=== PATIENT | male | born 1940 | race Caucasian/White ===

== ENCOUNTER 2018-06-15 09:21 | Observation (INO) | payer MEDICARE, BC ==
[~2018-06-15] VITALS: Ht 172.7 cm; Wt 32.3 kg
[2018-06-15 09:33] VITALS: Ht 172.7 cm; Wt 32.3 kg
[2018-06-15] MEDS ORDERED: LOSA1TAB25 ORAL (11:33)
[2018-06-15] MEDS ORDERED: BIMA2.5D OP (11:33)
[2018-06-15] MEDS ORDERED: CLON-379 PO (11:33)
[2018-06-15] MEDS ORDERED: AMLO-147 PO (11:33)
[2018-06-15] MEDS ORDERED: ACETAMINOPHEN 325 MG TAB PO PRN (12:00)
[2018-06-15] MEDS ORDERED: ONDANSETRON 4 MG INJ IV PRN (12:00)
--- NOTE | 2018-06-15 13:05 | ERD ---
ER Documentation Chief Complaint Chief Complaint rectal bleeding x 4 days , sent by pmd for eval HPI Patient is a 78-year-old male with hypertension who presents for GI bleed. The patient was sent by Dr. Macedo for admission. The symptoms started 4 days ago. The patient had bright red blood in his stool while in the bathroom. He said that his last colonoscopy was 2010. He does not take blood thinning medications currently. Upon review of old medical records this is the patient's first visit to the emergency department. The patient's primary doctor is Dr. Macedo. ROS All systems reviewed and are negative except as per history of present illness. Medications Home Meds Reported Medications Clonidine Hcl* (Clonidine Hcl*) 0.1 Mg Tab, 0.1 MG PO Q8 PRN for HTN, TAB 06/15/18 Losartan-Hydrochlorothiazide (Losartan-HCTZ) 100-25 Mg Tab, 1 TAB ORAL DAILY 06/15/18 Amlodipine Besylate* (Amlodipine Besylate*) 10 Mg Tablet, 10 MG PO DAILY, #30 TAB 06/15/18 Bimatoprost* (Lumigan*) 0.01%-2.5 Ml Opht Drops, 1 DROP OP QHS INTO BOTH EYES 06/15/18 Allergies Allergies: Coded Allergies: No Known Allergy (Unverified , 06/15/18) PMhx/Soc History of Surgery: Yes (ENDOSCOPY) Anesthesia Reaction: No Hx Neurological Disorder: No Hx Respiratory Disorders: No Hx Cardiac Disorders: Yes (HTN) Hx Psychiatric Problems: No Hx Miscellaneous Medical Probl: Yes (HEMORRHOIDS) Hx Alcohol Use: No Hx Substance Use: No Hx Tobacco Use: Yes Smoking Status: Former smoker FmHx Family History: diabetes Physical Exam Vitals Vital Signs Date Temp Pulse Resp B/P (MAP) Pulse Ox O2 O2 Flow FiO2 Time Delivery Rate 06/15/18 61 12 133/71 95 Room Air 11:00 (91) 06/15/18 67 14 182/78 98 Room Air 09:47 (112) 06/15/18 98.1 88 18 185/93 98 09:33 (123) Physical Exam Const: No acute distress Head: Atraumatic Eyes: Normal Conjunctiva ENT: Normal External Ears, Nose and Mouth. Neck: Full range of motion. No meningismus. Resp: Clear to auscultation bilaterally Cardio: Regular rate and rhythm, no murmurs Abd: Soft, non tender, non distended. Normal bowel sounds Skin: No petechiae or rashes Back: No midline or flank tenderness Ext: No cyanosis, or edema Neur: Awake and alert Psych: Normal Mood and Affect Result Diagram: 06/15/1858 06/15/1858 Results 24 hrs Laboratory Tests Test 06/15/18 09:58 White Blood Count 8.0 10^3/ul Red Blood Count 4.67 10^6/ul Hemoglobin 13.2 g/dl Hematocrit 40.4 % Mean Corpuscular Volume 86.5 fl Mean Corpuscular Hemoglobin 28.3 pg Mean Corpuscular Hemoglobin Concent 32.7 g/dl Red Cell Distribution Width 13.3 % Platelet Count 185 10^3/UL Mean Platelet Volume 11.1 fl Immature Granulocytes % 0.500 % Neutrophils % 77.7 % Lymphocytes % 13.1 % Monocytes % 6.9 % Eosinophils % 1.4 % Basophils % 0.4 % Nucleated Red Blood Cells % 0.0 /100WBC Immature Granulocytes # 0.040 10^3/ul Neutrophils # 6.2 10^3/ul Lymphocytes # 1.0 10^3/ul Monocytes # 0.6 10^3/ul Eosinophils # 0.1 10^3/ul Basophils # 0.0 10^3/ul Nucleated Red Blood Cells # 0.0 10^3/ul Prothrombin Time 13.2 Sec Prothrombin Time Ratio 1.0 INR International Normalized Ratio 0.99 Activated Partial Thromboplast Time 31.1 Sec Sodium Level 144 mmol/L Potassium Level 4.1 mmol/L Chloride Level 106 mmol/L Carbon Dioxide Level 27 mmol/L Anion Gap 11 Blood Urea Nitrogen 13 mg/dl Creatinine 0.99 mg/dl Est Glomerular Filtrat Rate mL/min mL/min Glucose Level 103 mg/dl Calcium Level 9.6 mg/dl Total Bilirubin 0.6 mg/dl Direct Bilirubin 0.00 mg/dl Indirect Bilirubin 0.6 mg/dl Aspartate Amino Transf (AST/SGOT) 22 IU/L Alanine Aminotransferase (ALT/SGPT) 13 IU/L Alkaline Phosphatase 71 IU/L Troponin I < 0.012 ng/ml Total Protein 7.9 g/dl Albumin 4.4 g/dl Globulin 3.50 g/dl Albumin/Globulin Ratio 1.25 Current Medications Medications Dose Sig/Benigno Start Time Status Last (Trade) Ordered Route PRN Stop Time Admin Dose Reason Admin Ondansetron 4 mg BRIDGE ORDER 06/15/18 HCl (Zofran PRN IV 12:00 06/16/18 Inj) NAUSEA/VOMITI 11:59 NG 650 mg ER BRIDGE 06/15/18 Acetaminophen PRN PO 12:00 06/16/18 (Tylenol .MILD PAIN 11:59 Tab) 1-3 OR TEMP Procedures/MDM EKG read by me: Rate/Rhythm: Regular rate and rhythm at a normal rate Intervals: Normal Impression: No evidence of ischemia or arrhythmia Patient is an 78-year-old male who was sent to the emergency department for GI bleed by his primary doctor Dr. Macedo. The patient will require admission for observation and possible GI consultation for colonoscopy. The patient has a high risk of bleeding given his age and I am concerned about significant GI bleed. Initial hemoglobin is 13 and he does not require transfusion at this time however if his hemoglobin drops further he may require transfusion. Departure Diagnosis: Primary Impression: GI bleed GI bleed type/associated pathology: unspecified gastrointestinal hemorrhage type Qualified Codes: K92.2 - Gastrointestinal hemorrhage, unspecified Additional Impression: Anemia Anemia type: unspecified type Qualified Codes: D64.9 - Anemia, unspecified Condition: KENDRA Chakraborty MD Jun 15, 2018 13:05
[2018-06-15 13:45] VITALS: BP 159/76; PULSE 69; RESP 16
--- NOTE | 2018-06-15 16:01 | HP ---
Date/Time of Note Date/Time of Note DATE: 06/15/18 TIME: 16:00 Assessment/Plan VTE Prophylaxis SCD applied (from Nsg): No SCD contraindicated: low risk/ambulating Pharmacological prophylaxis: other (Able to move all negative.) Lines/Catheters IV Catheter Type (from Nrsg): [place] [employer] line still needed: No Urinary Cath still in place: No Reason Cath still needed: urinary retention Assessment/Plan Assessment/Plan 1. Rectal stricture; progressively getting worse; after more than 20 years performed surgery for hemorrhoids. Unable to empty the bowel now more with more frequent reports reports of having rectal bleeding. With pain and discomfort. 2. Rectal bleeding 3. Hemorrhoids 4. Hypertension out of control 5. Dyslipidemia 6. Hypercalcemia 7. Atherosclerotic cardiovascular disease. 8. Severe hearing impairment 9. Osteoarthritis 10. Lumbosacral radiculopathy 11. Posttraumatic stress disorder 12. Anxiety disorder 13. Gastroesophageal reflux disorder. 14. BPH with possible prostatic mass 15. Snoring. Result Diagram: 06/15/1858 06/15/18 0958 Results 24hrs Laboratory Tests Test 06/15/18 09:58 White Blood Count 8.0 Red Blood Count 4.67 L Hemoglobin 13.2 L Hematocrit 40.4 L Mean Corpuscular Volume 86.5 Mean Corpuscular Hemoglobin 28.3 L Mean Corpuscular Hemoglobin Concent 32.7 Red Cell Distribution Width 13.3 Platelet Count 185 Mean Platelet Volume 11.1 H Immature Granulocytes % 0.500 H Neutrophils % 77.7 H Lymphocytes % 13.1 L Monocytes % 6.9 Eosinophils % 1.4 Basophils % 0.4 Nucleated Red Blood Cells % 0.0 Immature Granulocytes # 0.040 H Neutrophils # 6.2 Lymphocytes # 1.0 Monocytes # 0.6 Eosinophils # 0.1 Basophils # 0.0 Nucleated Red Blood Cells # 0.0 Prothrombin Time 13.2 Prothrombin Time Ratio 1.0 INR International Normalized Ratio 0.99 Activated Partial Thromboplast Time 31.1 Sodium Level 144 Potassium Level 4.1 Chloride Level 106 Carbon Dioxide Level 27 Anion Gap 11 Blood Urea Nitrogen 13 Creatinine 0.99 Est Glomerular Filtrat Rate mL/min Glucose Level 103 Calcium Level 9.6 Total Bilirubin 0.6 Direct Bilirubin 0.00 Indirect Bilirubin 0.6 Aspartate Amino Transf (AST/SGOT) 22 Alanine Aminotransferase (ALT/SGPT) 13 Alkaline Phosphatase 71 Troponin I < 0.012 Total Protein 7.9 Albumin 4.4 Globulin 3.50 H Albumin/Globulin Ratio 1.25 CA 125 Antigen 6.8 Thyroid Stimulating Hormone (TSH) 1.410 HPI/ROS Admit Date/Time Admit Date/Time Jun 15, 2018 at 11:59 Hx of Present Illness Rectal bleeding on and off. Getting more difficult to empty the bowel. It is also painful. I lost weight. He is struggling to evacuate the fecal masses to the rectum the patient underwent. Hemorrhoidal surgery more than 20 years ago after which this problem had started but now it is getting worse. PMH/Family/Social Past Medical History Medical History: angina, congestive heart failure, coronary artery disease, diabetes, diverticulitis, GERD, GI bleed, high cholesterol, hypertension, irritable bowel syndrome, urinary tract infection Medications Current Medications Ondansetron HCl (Zofran Inj) 4 mg BRIDGE ORDER PRN IV NAUSEA/VOMITING; Start 06/15/18 at 12:00; Stop 06/16/18 at 11:59 Acetaminophen (Tylenol Tab) 650 mg ER BRIDGE PRN PO .MILD PAIN 1-3 OR TEMP; Start 06/15/18 at 12:00; Stop 06/16/18 at 11:59 Coded Allergies: No Known Allergy (Unverified , 06/15/18) Social History Alcohol Use: rarely Smoking Status: Former smoker Drug Use: none Exam/Review of Systems Vital Signs Vitals Vital Signs Date Temp Pulse Resp B/P (MAP) Pulse Ox O2 O2 Flow FiO2 Time Delivery Rate 06/15/18 97.8 69 16 159/76 98 Room Air 13:45 (103) Exam Constitutional: alert, oriented, well developed, non-verbal, distress, frail Psych: anxiety, depression; No no complaints, No nl mood/affect, No confusion, No suicidal, No other Head: normocephalic, atraumatic; No lacerations, No hematomas, No other Eyes: EOMI, nl lids, PERRL; No nl conjunctiva, No nl sclera, No icteric, No fundi, disc, No other ENMT: nl lips & teeth; No nl external ears & nose, No nl nasal mucosa & septum, No mucosa pink and moist, No intubated, No tympanic membranes, No other Neck: jvd, bruits, nuchal rigidity; No supple, No non-tender, No masses, No thyromegaly, No other Respiratory: clear to auscultation, normal air movement, crackles/rales, diminished breath sounds; No congested cough, No intercostal retraction, No labored breathing, No respirations, No tactile fremitus, No wheezing, No other Cardiovascular: regular rate and rhythm, nl pulses, bruits, jugular venous distention (JVD), systolic murmur Gastrointestinal: soft, nl liver, spleen, non-tender, bowel sounds, distended, other (Status post sequelae of hemorrhoidectomy surgery note oh on 06 with scar tissue trace of hemorrhoids noted to have. Patient the patient refused to perform a manual digital exam.) ISABELLA LEDESMA MD Jun 15, 2018 16:00
[2018-06-15 20:00] VITALS: BP 157/71; PULSE 72; RESP 18
[2018-06-15] MEDS ORDERED: PEG/ELECTROLYTES 4L BTL PO ONE (20:00)
--- NOTE | 2018-06-15 20:24 | CONS ---
DATE OF ADMISSION: 06/15/2018 DATE OF CONSULTATION: TYPE OF CONSULTATION: Gastroenterology. Dear Dr. Macedo: Thank you for asking me to see Mr. Desouza in GI consultation. HISTORY OF PRESENT ILLNESS: The patient, as you know, is an 78-year-old [place] gentleman who at th is time is admitted to the hospital because of the history of rectal bleeding and apparently has been passing blood from the rectum for the past 4 days. He also says he has got extreme difficulty in em ptying the rectum and is unable to completely evacuate the rectum. He has history of hemorrhoidal alexis rgery 20 years ago. He has no nausea, no vomiting, no hematemesis, but he does have a history of abd ominal distention every time after he eats his food. No abdominal pain. He developed significant ab dominal distention. PAST MEDICAL HISTORY: Includes prostate surgery followed by chemotherapy and radiation. REVIEW OF SYSTEM: Positive for hypertension, dyslipidemia, hypercalcemia, deafness, osteoarthritis. MEDICATIONS PRIOR TO THE ADMISSION: Include: 1. Amlodipine. 2. Clonidine. 3. Losartan. 4. Hydrochlorothiazide. 5. Lumigan eyedrops. SOCIAL HISTORY: He quit drinking many years ago. PHYSICAL EXAMINATION: GENERAL: The patient is an 78-year-old [place] gentleman who at this time is very alert, well built . VITAL SIGNS: He is afebrile. CARDIOVASCULAR: Normal heart sounds. RESPIRATORY: Normal breath sounds. ABDOMEN: Showed unremarkable findings. LABORATORY WORKUP: Hemoglobin is 13.2, WBC count 8000. Potassium 4.1. Bilirubin 0.6, AST 22, ALT 1 3, alkaline phosphatase 71. CA-125 antigen is 6.8. TSH is 1.41. DIAGNOSTIC DATA: Chest x-ray shows prominent bilateral lower lobe interstitial lung markings. CLINICAL IMPRESSION: 1. The patient presenting with history of severe abdominal bloating and abdominal discomfort for man y years and certainly, one should rule out the possibility of peptic ulcer disease, gastroesophageal reflux disease, upper gastrointestinal tract neoplasm. 2. He has got history of rectal bleeding and has got difficulty in evacuation of the stools. 3. He is status post hemorrhoidectomy. Rule out rectal stricture. Rule out colorectal neoplasm, ar teriovenous malformation, diverticulosis of the colon. 4. Other medical problems essentially as mentioned above. PLAN: At this time, I recommend upper endoscopy as well as lower endoscopy. Once again, Dr. Macedo, thank you for this consultation. Dictated By: JACKI WELSH/NTS Conf#: [id number] DID#: [id number] CC: ISABELLA MACEDO MD;*EndCC*
[2018-06-15] MEDS: HYDROCHLOROTHIAZIDE 25 MG TAB PO SCH (20:43)
[2018-06-15] MEDS: LOSARTAN 50 MG TAB PO SCH (20:43)
[2018-06-15] MEDS ORDERED: CLONIDINE 0.1 MG/24 HR PATCH TRANSDERM ONE (21:00)
[2018-06-16] VITALS (14 sets, daily range): BP systolic 121–156; BP diastolic 58–88; PULSE 63–94; RESP 12–34
[2018-06-16] MEDS ORDERED: PROPOFOL 200 MG INJ ONE (07:00)
[2018-06-16] MEDS: HYDROCHLOROTHIAZIDE 25 MG TAB PO SCH (09:01)
[2018-06-16] MEDS: LOSARTAN 50 MG TAB PO SCH (09:01)
[2018-06-16] MEDS: AMLODIPINE 10 MG TAB PO SCH (09:01)
--- NOTE | 2018-06-16 15:20 | CONS ---
Assessment/Plan Assessment/Plan Hospital Course (Demo Recall) Rectal bleeding: EGD/colonoscopy 06/16/18 showed HTN: now better controlled -continue amlodipine 10mg -losartan 100mg -HCTZ 25mg Consultation Date/Type/Reason Admit Date/Time Jun 15, 2018 at 11:59 Date of Consultation: Jun 16, 2018 Type of Consult Cardiology Reason for Consultation HTN Requesting Provider: ISABELLA LEDESMA MD Date/Time of Note DATE: 06/16/18 TIME: 15:18 Hx of Present Illness 78 yo M with a h/o HTN, prior GI bleed, who presented with rectal bleeding. His BP on admission was 180s, now better controlled. He is to have EGD/colo today. per hPI Past Medical History per HPI Home Meds Active Scripts Mesalamine* (Canasa*) 1,000 Mg Supp, 1000 MG SC HS for 60 Days, #60 SUPP Prov:ISABELLA LEDESMA MD 06/17/18 Reported Medications Clonidine Hcl* (Clonidine Hcl*) 0.1 Mg Tab, 0.1 MG PO Q8 PRN for HTN, TAB 06/15/18 Losartan-Hydrochlorothiazide (Losartan-HCTZ) 100-25 Mg Tab, 1 TAB ORAL DAILY 06/15/18 Amlodipine Besylate* (Amlodipine Besylate*) 10 Mg Tablet, 10 MG PO DAILY, #30 TAB 06/15/18 Bimatoprost* (Lumigan*) 0.01%-2.5 Ml Opht Drops, 1 DROP OP QHS INTO BOTH EYES 06/15/18 Medications Current Medications Amlodipine Besylate (Norvasc) 10 mg DAILY PO Last administered on 06/16/18at 09:01; Admin Dose 10 MG; Start 06/16/18 at 09:00 Losartan Potassium (Cozaar) 100 mg DAILY PO Last administered on 06/16/18at 09:01; Admin Dose 100 MG; Start 06/15/18 at 21:00 Hydrochlorothiazide (Hydrochlorothiazide) 25 mg DAILY PO Last administered on at 09:01; Admin Dose 25 MG; Start 06/15/18 at 21:00 Allergies: Coded Allergies: No Known Allergy (Unverified , 06/15/18) Social History Alcohol Use: rarely Smoking Status: Former smoker Drug Use: none Exam/Review of Systems Vital Signs Vitals Vital Signs Date Temp Pulse Resp B/P (MAP) Pulse Ox O2 O2 Flow FiO2 Time Delivery Rate 06/16/18 98.1 94 18 154/73 96 Room Air 08:26 (100) Intake and Output 06/15/18 06/15/18 06/16/18 1515:00 23:00 07:00 IntakeIntake Total 600 ml BalanceBalance 600 ml Exam Constitutional: alert, oriented Psych: no complaints, nl mood/affect Head: normocephalic, atraumatic Neck: supple; No jvd Respiratory: clear to auscultation; No crackles/rales Cardiovascular: regular rate and rhythm; No edema Gastrointestinal: soft, non-tender Neurological: nl mental status, nl speech Labs Result Diagram: 06/15/1895706/15/18957 Results 24hrs Laboratory Tests Test 06/16/18 00:01 Stool Occult Blood NEGATIVE Medications Medications Current Medications Amlodipine Besylate (Norvasc) 10 mg DAILY PO Last administered on 06/16/18 09:01; Admin Dose 10 MG; Start 06/16/18 at 09:00 Losartan Potassium (Cozaar) 100 mg DAILY PO Last administered on 06/16/18 09: 01; Admin Dose 100 MG; Start 06/15/18 at 21:00 Hydrochlorothiazide (Hydrochlorothiazide) 25 mg DAILY PO Last administered on 06/16/18 09:01; Admin Dose 25 MG; Start 06/15/18 at 21:00 SOCORRO NULL Jun 16, 2018 15:20
[2018-06-16] MEDS ORDERED: PROPOFOL 60 ML ONE (15:56)
[2018-06-16] MEDS ORDERED: LIDOCAINE 100 MG SYRINGE ONE (15:56)
[2018-06-16] MEDS ORDERED: FENTAnyl 50 MCG/ML VIAL ONE (15:57)
--- NOTE | 2018-06-16 16:05 | PREAC ---
Date/Time of Note Date/Time of Note DATE: 06/16/18 TIME: 16:03 Anesthesia Eval and Record Evaluation Time Pre-Procedure Interview DATE: 06/16/18 TIME: 16:03 Age 78 Sex male NPO: 8 hrs Preoperative diagnosis GI BLEEDING Planned procedure EGD, COLONOSCOPY Past Medical History Past Medical History: Includes Cardio: HTN, Dyslipidemia GI: GERD Psych: Anxiety Surgery & Anesthesia Issues No known issue Meds Anticoagulation: No Beta Shanta within 24 hr: No Reason Beta Shanta not given: Pt. not on B-Shanta Reported Medications Clonidine Hcl* (Clonidine Hcl*) 0.1 Mg Tab, 0.1 MG PO Q8 PRN for HTN, TAB 06/15/18 Losartan-Hydrochlorothiazide (Losartan-HCTZ) 100-25 Mg Tab, 1 TAB ORAL DAILY 06/15/18 Amlodipine Besylate* (Amlodipine Besylate*) 10 Mg Tablet, 10 MG PO DAILY, #30 TAB 06/15/18 Bimatoprost* (Lumigan*) 0.01%-2.5 Ml Opht Drops, 1 DROP OP QHS INTO BOTH EYES 06/15/18 Current Medications Amlodipine Besylate (Norvasc) 10 mg DAILY PO Last administered on 06/16/18at 09:01; Admin Dose 10 MG; Start 06/16/18 at 09:00 Losartan Potassium (Cozaar) 100 mg DAILY PO Last administered on 06/16/18at 09:01; Admin Dose 100 MG; Start 06/15/18 at 21:00 Hydrochlorothiazide (Hydrochlorothiazide) 25 mg DAILY PO Last administered on 06/16/18at 09:01; Admin Dose 25 MG; Start 06/15/18 at 21:00 Meds reviewed: Yes Allergies Coded Allergies: No Known Allergy (Unverified , 06/15/18) Allergies Reviewed: Yes Labs/Studies Labs Reviewed: Reviewed by anesthesiologist Result Diagram: 06/15/1895706/15/18957 test: N/A Pre-procedure Exam Last vitals Vital Signs Date Temp Pulse Resp B/P (MAP) Pulse Ox O2 O2 Flow FiO2 Time Delivery Rate 06/16/18 98.6 63 12 145/68 93 Room Air 15:10 (93) Airway: Adequate mouth opening, Adequate thyromental dist Mallampati: Mallampati II Teeth: Abnormal (NO TEETH) Lung: Normal Heart: Normal ASA Physical Status ASA physical status: 3 Emergency: None Planned Anesthetic General/MAC: MAC Planned Pain Management Parenteral pain med Pre-operative Attestations Prior to commencing anesthesia and surgery, the patient was re-evaluated, there was verification of: *The patient's identity *The results of appropriate recent lab work and preoperative vital signs *The above evaluation not changing prior to induction *Anesthetic plan, risk benefits, alternative and complications discussed with patient/family; questions answered; patient/family understands, accepts and wishes to proceed. Brayan Foster M.D. Jun 16, 2018 16:05
[2018-06-16] MEDS ORDERED: hydrALAzine 20 MG INJ IV PRN (16:30)
[2018-06-16] MEDS ORDERED: IPRATROPIUM (NEB) 0.5 MG/2.5 ML AMP HHN PRN (16:30)
[2018-06-16] MEDS ORDERED: LABETALOL HCL 20MG INJ IV PRN (16:30)
[2018-06-16] MEDS ORDERED: DIPHENHYDRAMINE 50 MG INJ IV PRN (16:30)
[2018-06-16] MEDS ORDERED: MEPERIDINE 25 MG INJ IV PRN (16:30)
[2018-06-16] MEDS ORDERED: HYDROmorphONE 1 MG/5 ML IV SYRINGE IV PRN ×3 (16:30)
[2018-06-16] MEDS ORDERED: TRIMETHOBENZAMIDE 100 MG/ML VIAL IM PRN (16:30)
[2018-06-16] MEDS ORDERED: ONDANSETRON 4 MG INJ IV PRN (16:30)
[2018-06-16] MEDS ORDERED: MIDAZOLAM 1 MG/ML 2 ML INJ IV PRN (16:30)
[2018-06-16] MEDS ORDERED: ALBUTEROL 0.083% (NEB) 2.5 MG/3 ML AMP HHN PRN (16:30)
[2018-06-16] MEDS ORDERED: EPHEDrine SULFATE 50 MG/5 ML SYG IV PRN (16:30)
[2018-06-16] MEDS ORDERED: FENTAnyl 50 MCG/ML VIAL IV PRN ×3 (16:30)
[2018-06-16] MEDS ORDERED: OXYCODONE/ACETAMINOPHEN (5/325) TAB PO PRN ×2 (16:30)
--- NOTE | 2018-06-16 16:46 | PAC ---
Date/Time of Note Date/Time of Note DATE: 06/16/18 TIME: 16:45 Post-Anesthesia Notes Post-Anesthesia Note Last documented vital signs Vital Signs Date Temp Pulse Resp B/P (MAP) Pulse Ox O2 O2 Flow FiO2 Time Delivery Rate 06/16/18 98.6 63 12 145/68 93 Room Air 15:10 (93) Activity: WNL Respiratory function: WNL Cardiovascular function: WNL Mental status: Baseline Pain reasonably controlled: Yes Hydration appropriate: Yes Nausea/Vomiting absent: Yes Brayan Foster M.D. Jun 16, 2018 16:46
--- NOTE | 2018-06-16 17:52 | CONS ---
DATE OF ADMISSION: 06/15/2018 DATE OF CONSULTATION: 06/16/2018 TYPE OF CONSULTATION: Surgical. REQUESTING PHYSICIAN: Isabella Macedo MD from surgical group, Danish Messer MD and Hector faye MD REASON FOR CONSULTATION: To evaluate the patient who is presenting because of fresh rectal bleeding since 4 days ago. Thank you, Dr. Macedo, for consultation. HISTORY OF PRESENT ILLNESS: As you know, this is an 78-year-old gentleman who has some medical probl em, but not a lot and has been doing fine when 4 days ago when he was in the bathroom, he noted passa ge of the fresh red blood per rectum, so eventually, he was referred to your office and was sent to e mergency room and from the emergency room he was admitted. PAST MEDICAL HISTORY: The patient has been diagnosed as a hypertensive case and has been on several medications at home. PAST SURGICAL HISTORY: The patient has had kind of hemorrhoid operation 10 to 15 years ago. Also, h as had cancer of prostate operated on in 2009 and followed by chemotherapy and radiation. REVIEW OF SYSTEMS: Positive for hemorrhoid operation, hypertension, cancer of prostate, former smoke r; otherwise, no other known pathology. ALLERGIES: NOT KNOWN. MEDICATIONS: The patient has been taking some medication at home includin. Clonidine hydrochloride. 2. Losartan. 3. Potassium salt. 4. Amlodipine besylate for high blood pressure. PHYSICAL EXAMINATION: GENERAL: The patient is alert, awake, oriented x3. The patient is not in acute distress. VITAL SIGNS: Temperature maximum today 98.6, heart rate has been fluctuating between 63 and 94, resp irations fluctuating between 12 and 18, blood pressure 154/73 on one occasion and another occasion 14 5/68, saturation between 93% and 96% on room air. HEENT: Head is normocephalic. Eyes: Pupils are equally round, reactive to light and accommodative. Extraocular muscles have full range of motion. HEART: Regular rate and rhythm. No murmurs. NECK: Trachea is in midline. No thyroid enlargement. No carotid bruit. LUNGS: Clear to auscultation. ABDOMEN: Soft. I could not see any scar of operation. EXTREMITIES: Lower extremities have no pitting edema. RECTAL: Performed with the gloved finger. There is no stenosis to me in the anal canal and anus. T he sphincter tone is slightly decreased, but the patient can contract the sphincters. On the posteri or aspect of the anal canal maybe 2 to 3 cm from anal verge at the site of the coccygeal bone, it charissa ears to be a couple of anal polyps which are easily mobile. I do not feel and I do not see extensive hemorrhoids. Prostate is not enlarged, though the patient has had cholecystectomy. Up to 5 to 6 cm from anal verge examination, it did not reveal presence of any mass or tumor. No blood on the glove . LABORATORY DATA: WBC is 8000, hemoglobin is 13.2, hematocrit 40.4, differential is 77.7 neutrophils. Chemistry: Sodium, potassium are normal. BUN and creatinine are normal. Albumin 4.4, globulin 3. 5. Thyroid stimulating hormone is normal. CA-125 antigen is 6.8, normal. DIAGNOSTIC DATA: Chest x-ray report: Prominent bilateral lower lobe interstitial lung markings, may be secondary to edema, atypical infection or chronic interstitial lung disease. IMPRESSION: An 78-year-old gentleman with: 1. Acute recent onset lower gastrointestinal bleeding with fresh blood per rectum. 2. Status post cancer of the prostate operation and radiation. 3. Status post hemorrhoidectomy many years ago. 4. Hypertension. PLAN: At this time, I am not sure what is the cause of this rectal bleeding that the patient has bee n concerned about and reports. Of course GI colleague, Dr. Ramirez is going to do colonoscopy and pro bably EGD that is going to help a lot and give us a lot of information including possibility of cance r or AV malformation. From surgical point of view, we will make suggestion and we will make further decision after we see the report of the colonoscopy which is going to be done today by Dr. Ramirez. A lso, maybe it will be a good idea to get a CT scan of the abdomen and pelvis with contrast before the patient leaves the hospital. Further recommendation is based on the hospital course and report of t vesta lab results, colonoscopy and EGD. Thank you again for consultation. Dictated By: HECTOR GUTIERREZ MD PS/NTS Conf#: [id number] DID#: [id number] CC: ISABELLA MACEDO MD; JACKI RAMIREZ MD;*EndCC*
[2018-06-16] MEDS ORDERED: MESALAMINE 1000 MG SUPP PR SCH (21:00)
--- NOTE | 2018-06-16 21:48 | PN ---
Date/Time of Note Date/Time of Note DATE: 06/16/18 TIME: 21:44 Assessment/Plan VTE Prophylaxis Risk score (from Ns)>0 risk: 5 SCD applied (from Ns): Yes SCD contraindicated: low risk/ambulating Pharmacological prophylaxis: LMWH Pharm contraindication: low risk/ambulating Lines/Catheters [facility]from [facility] Peripheral IV Central line still needed: No Urinary Cath still in place: No Reason Cath still needed: urinary retention Assessment/Plan Assessment/Plan 1. Rectal stricture; progressively getting worse; after more than 20 years performed surgery for hemorrhoids. Unable to empty the bowel now more with more frequent reports reports of having rectal bleeding. With pain and discomfort. 2. Rectal bleeding 3. Hemorrhoids 4. Hypertension out of control 5. Dyslipidemia 6. Hypercalcemia 7. Atherosclerotic cardiovascular disease. 8. Severe hearing impairment 9. Osteoarthritis 10. Lumbosacral radiculopathy 11. Posttraumatic stress disorder 12. Anxiety disorder 13. Gastroesophageal reflux disorder. 14. BPH with possible prostatic mass 15. Snoring. 16. History of prostatic cancer. Status post radiation therapy 17. Obesity. 18. Result Diagram: 06/15/18 0958 06/16/18 1822 Results 24hrs Laboratory Tests Test 06/16/18 00:01 06/16/18 18:22 Stool Occult Blood NEGATIVE Sodium Level 142 Potassium Level 4.1 Chloride Level 103 Carbon Dioxide Level 31 Anion Gap 8 Blood Urea Nitrogen 11 Creatinine 0.96 Est Glomerular Filtrat Rate mL/min Glucose Level 100 Calcium Level 10.2 Subjective 24 Hr Interval Summary Free Text/Dictation Although I am clean to go to the procedure but still having difficulty to empty the bowel today had no bleeding. Subjective hx not possible: pt non-verbal Constitutional: improved, disoriented, poor po, requiring IVF; No no complaints, No chills, No diaphoresis, No febrile, No requiring O2, No other Eyes: No no complaints, No pain, No discharge, No redness, No visual change, No other ENT: pain, congestion; No no complaints, No bleeding, No discharge, No dysphagia, No sore throat, No other Respiratory: shortness of breath; No no complaints, No pain, No cough, No pleuritic pain, No sputum, No wheezing, No other Cardiovascular: lightheadedness; No no complaints, No chest pain, No edema, No orthopenea, No palpitations, No paroxysmal nocturnal dyspnea, No other Gastrointestinal: constipation, decreased appetite, flatus, nausea, passing stool; No no complaints, No pain, No blood, No diarrhea, No vomiting, No other Genitourinary: dysuria; No no complaints, No bleeding, No discharge, No flank pain, No hematuria, No other Musculoskeletal: back pain, bone/joint pain, neck pain Skin: pruritis, rash; No no complaints, No bruising, No erythema, No laceration, No skin lesions, No other Neurologic: dizziness; No no complaints, No confusion, No focal-weakness, No headache, No syncope, No seizure, No other Endocrine: dry skin; No no complaints, No polyuria, No polydypsia, No temp intolerance, No other Psychological: No no complaints, No nl mood/affect, No anxiety, No confusion, No depression, No suicidal, No other Immunologic: No no complaints, No immunodeficiency, No pruritis, No rhinitis, No urticaria, No other Exam/Review of Systems Exam Vitals Vital Signs Date Temp Pulse Resp B/P (MAP) Pulse Ox O2 O2 Flow FiO2 Time Delivery Rate 06/16/18 98.0 72 18 121/58 94 20:00 (79) 06/16/18 Room Air 18:09 Intake and Output 06/15/18 06/15/18 06/16/18 1515:00 23:00 07:00 IntakeIntake Total 600 ml BalanceBalance 600 ml Constitutional: alert, oriented, well developed, distress, frail, obese; No non-verbal, No other Psych: anxiety, depression; No no complaints, No nl mood/affect, No confusion, No suicidal, No other Head: normocephalic, atraumatic; No lacerations, No hematomas, No other Eyes: EOMI, nl lids; No nl conjunctiva, No nl sclera, No PERRL, No icteric, No fundi, disc, No other ENMT: No nl external ears & nose, No nl lips & teeth, No nl nasal mucosa & septum, No mucosa pink and moist, No intubated, No tympanic membranes, No other Neck: jvd, bruits, thyromegaly, nuchal rigidity; No supple, No non-tender, No masses, No other Respiratory: normal air movement, diminished breath sounds; No clear to auscultation, No congested cough, No crackles/rales, No intercostal retraction, No labored breathing, No respirations, No tactile fremitus, No wheezing, No other Cardiovascular: regular rate and rhythm, nl pulses, systolic murmur Gastrointestinal: soft, bowel sounds; No nl liver, spleen, No non-tender, No ascites, No distended, No firm, No hepatomegaly, No mass, No rebound or guarding, No splenomegaly, No surgical sc ars, No tender, No other Genitourinary - Male: nl penis, nl scrotum; No CVA tenderness, No discharge, No other Musculoskeletal: joint tenderness, muscle tone, muscle weakness; No nl extremities to inspection, No nl gait and stance, No range of motion, No spine non-tender, No swelling, No other Extremities: No normal pulses, No calf tenderness, No cyanosis, No clubbing, No edema, No pitting pedal edema, No palpable cord, No tenderness, No other Neurological: ACCOUNT INFORMATION CLERK II-XII intact; No nl mental status, No nl speech, No nl strength, No confused, No DTR's symmetric, No focal weakness, No lethargic, No numbness, No reflexes, No unresponsive, No other Skin: nl turgor, ecchymosis; No rash or lesions, No diaphoresis, No laceration, No puncture, No other Lymph: No nl lymph nodes, No enlarged, No nontender, No other Results Results 24hrs Laboratory Tests Test 06/16/18 00:01 06/16/18 18:22 Stool Occult Blood NEGATIVE Sodium Level 142 Potassium Level 4.1 Chloride Level 103 Carbon Dioxide Level 31 Anion Gap 8 Blood Urea Nitrogen 11 Creatinine 0.96 Est Glomerular Filtrat Rate mL/min Glucose Level 100 Calcium Level 10.2 Medications Medication Current Medications Amlodipine Besylate (Norvasc) 10 mg DAILY PO Last administered on 06/16/18 09:01; Admin Dose 10 MG; Start 06/16/18 at 09:00 Losartan Potassium (Cozaar) 100 mg DAILY PO Last administered on 06/16/18 09:01; Admin Dose 100 MG; Start 06/15/18 at 21:00 Hydrochlorothiazide (Hydrochlorothiazide) 25 mg DAILY PO Last administered on 06/16/18 09:01; Admin Dose 25 MG; Start 06/15/18 at 21:00 Mesalamine (Canasa Supp) 1,000 mg HS IA Last administered on 06/16/18at 21:22; Admin Dose 1,000 MG; Start 06/16/18 at 21:00 ISABELLA LEDESMA MD Jun 16, 2018 21:48
[2018-06-17 02:37] VITALS: BP 122/58; PULSE 73; RESP 18
[2018-06-17 07:58] VITALS: BP 130/63; PULSE 72; RESP 16
--- NOTE | 2018-06-17 09:19 | PDOCDIS ---
Discharge Instructions DIAGNOSIS Discharge Diagnosis 1. Rectal stricture; progressively getting worse; after more than 20 years performed surgery for hemorrhoids. Unable to empty the bowel now more with more frequent reports reports of having rectal bleeding. With pain and discomfort. 2. Rectal bleeding-1 more episode in the hospital and no more episodes after that. 3. Hemorrhoids 4. Hypertension out of control 5. Dyslipidemia 6. Hypercalcemia 7. Atherosclerotic cardiovascular disease. 8. Severe hearing impairment 9. Osteoarthritis 10. Lumbosacral radiculopathy 11. Posttraumatic stress disorder 12. Anxiety disorder 13. Gastroesophageal reflux disorder. 14. BPH with possible prostatic mass 15. Snoring. 16. History of prostatic cancer. Status post radiation therapy 17. Obesity. 18. Irritable bowel syndrome constipation type 19. Status post colonic polypectomies pathology is pending 20. Thoracal lumbar sacral pain CONDITION [id number] Patient Condition: [id number] Guarded HOME CARE INSTRUCTIONS: [id number] Diet Instructions: [id number] Reduced Sodium ACTIVITY: [id number] Activity Restrictions: [id number] Slowly Increase Activity [id number] Bathing Restrictions: [id number] Shower FOLLOW UP/APPOINTMENTS Follow-up Plan In 3 days to primary care physician In [address] Ramirez SCHOOL/WORK RELEASE May return to School/Work with: ISABELLA Mittal MD Jun 17, 2018 09:19
--- NOTE | 2018-06-17 09:21 | DS ---
Date/Time of Note Date/Time of Note DATE: 06/17/18 TIME: 09:20 Discharge Summary Admission/Discharge Info Admit Date/Time Jun 15, 2018 at 11:59 Discharge Date/Time After the third 1999 1910 00 a.m. Discharge Diagnosis 1. Rectal stricture; progressively getting worse; after more than 20 years performed surgery for hemorrhoids. Unable to empty the bowel now more with more frequent reports reports of having rectal bleeding. With pain and discomfort. 2. Rectal bleeding-1 more episode in the hospital and no more episodes after that. 3. Hemorrhoids 4. Hypertension out of control 5. Dyslipidemia 6. Hypercalcemia 7. Atherosclerotic cardiovascular disease. 8. Severe hearing impairment 9. Osteoarthritis 10. Lumbosacral radiculopathy 11. Posttraumatic stress disorder 12. Anxiety disorder 13. Gastroesophageal reflux disorder. 14. BPH with possible prostatic mass 15. Snoring. 16. History of prostatic cancer. Status post radiation therapy 17. Obesity. 18. Irritable bowel syndrome constipation type 19. Status post colonic polypectomies pathology is pending 20. Thoracal lumbar sacral pain Hx of Present Illness Rectal bleeding on and off. Getting more difficult to empty the bowel. It is also painful. I lost weight. He is struggling to evacuate the fecal masses to the rectum the patient underwent. Hemorrhoidal surgery more than 20 years ago after which this problem had started but now it is getting worse. Hospital Course Patient had a gastritis along with her irritable bowel syndrome constipation type status post polypectomy she is from the surgical area and from distal part of the colon pathologies are pending outpatient appointment with Dr. Ramirez in 10-14 days overall he did well. We will give stool softeners along with dietary changes. Medication doses were adjusted. Home Meds Reported Medications Clonidine Hcl* (Clonidine Hcl*) 0.1 Mg Tab, 0.1 MG PO Q8 PRN for HTN, TAB 06/15/18 Losartan-Hydrochlorothiazide (Losartan-HCTZ) 100-25 Mg Tab, 1 TAB ORAL DAILY 06/15/18 Amlodipine Besylate* (Amlodipine Besylate*) 10 Mg Tablet, 10 MG PO DAILY, #30 TAB 06/15/18 Bimatoprost* (Lumigan*) 0.01%-2.5 Ml Opht Drops, 1 DROP OP QHS INTO BOTH EYES 06/15/18 Follow-up Plan In 3 days to primary care physician In [address] Ramirez Primary Care Provider Nestor Ledesma MD Time spent on discharge: < 30 minutes Pending Labs Laboratory Tests Test 06/16/18 18:22 Sodium Level 142 mmol/L (135-144) Potassium Level 4.1 mmol/L (3.5-5.1) Chloride Level 103 mmol/L (97-110) Carbon Dioxide Level 31 mmol/L (21-31) Anion Gap 8 (5-13) Blood Urea Nitrogen 11 mg/dl (7-20) Creatinine 0.96 mg/dl (0.61-1.24) Est Glomerular Filtrat Rate mL/min mL/min (>60) Glucose Level 100 mg/dl (70-220) Calcium Level 10.2 mg/dl (8.4-10.2) NESTOR LEDESMA MD Jun 17, 2018 09:21
[2018-06-17] MEDS ORDERED: CANA1000R PR (09:23)
[2018-06-17] MEDS: AMLODIPINE 10 MG TAB PO SCH (09:41)
[2018-06-17] MEDS: HYDROCHLOROTHIAZIDE 25 MG TAB PO SCH (09:41)
[2018-06-17] MEDS: LOSARTAN 50 MG TAB PO SCH (09:42)
== END 2018-06-17 10:23 | disposition home or self-care (01) ==
LOC: E/R 09:21 → PP2 11:59 → EDBEDREQ 12:07
PROVIDERS: ADMIT Family Medicine; ATTEND Family Medicine
DX: K62.4 Stenosis of anus and rectum (principal); K62.5 Hemorrhage of anus and rectum; D12.6 Benign neoplasm of colon, unspecified; K29.30 Chronic superficial gastritis without bleeding; I10 Essential (primary) hypertension; E78.5 Hyperlipidemia, unspecified; E83.52 Hypercalcemia; M19.90 Unspecified osteoarthritis, unspecified site; M54.17 Radiculopathy, lumbosacral region; H91.90 Unspecified hearing loss, unspecified ear; F43.10 Post-traumatic stress disorder, unspecified; F41.9 Anxiety disorder, unspecified; K21.9 Gastro-esophageal reflux disease without esophagitis; N40.0 Benign prostatic hyperplasia without lower urinary tract symptoms; R06.83 Snoring; E66.9 Obesity, unspecified; K58.1 Irritable bowel syndrome with constipation; Z85.46 Personal history of malignant neoplasm of prostate; Z92.3 Personal history of irradiation; Z87.891 Personal history of nicotine dependence
CPT/HCPCS: 36415; 43239; 45380; 71046; 80048; 80053; 82270; 82310; 83970; 84443; 84484; 85025; 85610; 85730; 86304; 86850; 86900; 86901; 88305; 88312; 93005; 99285; G0378; J2001; J3010